=== PATIENT | female | born 1950 | race Caucasian/White ===

== ENCOUNTER 2016-09-15 17:41 | Observation (INO) | payer MEDICARE, OTHER ==
[~2016-09-15] VITALS: Ht 157.5 cm; Wt 79.0 kg
[2016-09-15 19:16] LABS: HEMOGLOBIN 13.2 gm/dl (12.3-15.3); RED BLOOD COUNT 4.37 M/UL (4.00-5.10); WHITE BLOOD COUNT 3.8 K/UL (4.5-11.0)
[2016-09-15 19:24] LABS: BUN/CREATININE RATIO 7 (0-10)
[2016-09-16] MEDS ORDERED: SEROQUEL100 MG PO (00:40)
[2016-09-16] MEDS ORDERED: CYMBALTA30 MG PO (00:40)
[2016-09-16] MEDS ORDERED: PROAIR HFA8.5 GM INH (00:40)
[2016-09-16] MEDS ORDERED: VALIUM 5 MG TAB5 MG PO (00:42)
[2016-09-16] MEDS ORDERED: AUGMENTIN TAB875 MG PO (00:42)
[2016-09-16] MEDS ORDERED: IMITREX50 MG PO (00:42)
[2016-09-16 07:25] LABS: HEMOGLOBIN 11.2 gm/dl (12.3-15.3); RED BLOOD COUNT 3.73 M/UL (4.00-5.10); WHITE BLOOD COUNT 2.6 K/UL (4.5-11.0)
[2016-09-16 08:20] LABS: BUN/CREATININE RATIO 11 (0-10)
[2016-09-17 04:43] LABS: HEMOGLOBIN 11.7 gm/dl (12.3-15.3); RED BLOOD COUNT 3.9 M/UL (4.00-5.10)
[2016-09-17 04:47] LABS: WHITE BLOOD COUNT 4.2 K/UL (4.5-11.0)
[2016-09-17 05:04] LABS: BUN/CREATININE RATIO 11 (0-10)
[2016-09-17] MEDS ORDERED: IPRAT-ALBUT 0.5-3 ML INH (18:25)
[2016-09-17] MEDS ORDERED: MEDROL DOSEPAK 24 MG PO (18:25)
[2016-09-17] MEDS ORDERED: CEFUROXIME500 MG PO (18:26)
== END 2016-09-17 19:20 | disposition home or self-care (01) ==
LOC: ER1 17:41 → MED SURG 4 21:57 → ZEROF 21:57 → MED SURG 4 23:53
PROVIDERS: Family Medicine; Student in an Organized Health Care Education/Training Program; ADMIT Internal Medicine
DX: J44.1 Chronic obstructive pulmonary disease with (acute) exacerbation (principal); J20.9 Acute bronchitis, unspecified; D61.818 Other pancytopenia; E87.2 Acidosis; E87.6 Hypokalemia; F41.9 Anxiety disorder, unspecified; I10 Essential (primary) hypertension; E78.5 Hyperlipidemia, unspecified; R06.82 Tachypnea, not elsewhere classified; D72.819 Decreased white blood cell count, unspecified; R74.8 Abnormal levels of other serum enzymes; R31.9 Hematuria, unspecified; K59.00 Constipation, unspecified; F17.210 Nicotine dependence, cigarettes, uncomplicated; Z79.899 Other long term (current) drug therapy; Z90.710 Acquired absence of both cervix and uterus; Z23 Encounter for immunization
CPT/HCPCS: ECHO; 36415; 36600; 71010; 80048; 80053; 80307; 81001; 82550; 82553; 82803; 83605; 83735; 83874; 84439; 84443; 84484; 85025; 85027; 87040; 87070; 87086; 87205; 93005; 93306; 94640; 94664; 96361; 96374; 96375; 96376; 99285; G0008; G0378; J0456; J0696; J1644; J2920; J2930; J7030; J7050; Q2039; Q9963